=== PATIENT | male | born 1980 | race Caucasian/White ===

== ENCOUNTER → 2022-02-12 | Outpatient (CLI) | payer BC ==
[~2022-02-12] MED LIST: Amoxicillin875 MG PO; CEPH500 PO; Cortisporin Ear10 ML RIGHTEAR; HYDACE10B PO; HYDR1TAB94 PO; LISI20 PO; OFLO.3OTSO RIGHTEAR; Percocet 5-3251 EACH PO; SULTRIDS PO; Zofran Odt4 MG SL
== END | disposition home or self-care (01) ==
LOC: LAB 14:57 → LAB SHORT 14:57 → PLD 14:57
DX: L73.9 Follicular disorder, unspecified (principal)
CPT/HCPCS: 88305; 88312

== ENCOUNTER → 2022-02-12 | Outpatient (CLI) | payer BC | LOC: LAB 13:44 → LAB SHORT 13:44 | DX: L08.0 Pyoderma (principal) | CPT/HCPCS: 87070; 87077; 87147; 87186; 87205 ==